=== PATIENT | female | born 1955 | race Caucasian/White ===

== ENCOUNTER 2019-10-13 12:47 | Observation (INO) | payer MEDICARE, OTHER ==
[~2019-10-13] VITALS: Ht 160 cm; Wt 63.2 kg
[~2019-10-13 12:47] MED LIST: ANTIFUNGAL CREA14 GM TP; ASPIRIN EC325 MG PO; BLOOD GLUCOSE1 EAC5 MC; CARVEDILOL6.25 MG PO; CEPHALEXIN500 MG PO; CYMBALTA20 MG PO; FUROSEMIDE80 MG PO; GLIPIZIDE5 MG PO; LANTUS100 UNITS/ SUB-Q; LASIX20 MG PO; LIPITOR40 MG PO; NOVOLOG100 UNITS/ IV; ZESTRIL5 MG PO
--- OUTSIDE RECORDS SUMMARY | 2019-10-13 12:50 | XMS ---
PreManage Notification: WASHINGTON BAUGH Security Glass Decorator Events No recent Security Events currently on file CRITERIA MET - History of Sepsis Dx CARE PROVIDERS Lynda Paz Provisioning Specialist/Pet Resort Concierge 05/31/2018-Current PHONE: [phone] Lynda Paz Primary Care 05/31/2018-Current PHONE: [phone] Srini Cage MD Treatment Current PHONE: Unknown Family [facility] Primary [facility] Current Associates PHONE: [phone] Letitia has no Care Guidelines for this patient. Angelica VISIT COUNT (12 MO.) 1 [facility] Gloria TOTAL 1 NOTE: Visits indicate total known visits. ED/UCC VISIT TRACKING (12 MO.) 10/13/2019 12:48 [facility] [place] TYPE: Emergency COMPLAINT: - ALTERED LOC INPATIENT VISIT TRACKING (12 MO.) No inpatient visits to display in this time frame [id number]
[2019-10-13] MEDS ORDERED: MECLIZINE HCL25 MG PO (13:09)
[2019-10-13] MEDS ORDERED: LOSARTAN POTASS25 MG PO (13:09)
[2019-10-13] MEDS ORDERED: CITALOPRAM HBR40 MG PO (13:09)
[2019-10-13] MEDS ORDERED: FAMOTIDINE40 MG PO (13:10)
--- NOTE | 2019-10-13 20:42 | NUR ---
PT ARRIVED TO THE FLOOR AT 2009. SHE WAS UNABLE TO AMBULATE TO THE BED AND WAS MOVED OVER ON [facility] 3PA. SHE HAS A MOROCHO IN PLACE AND IS ON 3LNC. RR IS EVEN AND NONLABORED. SHE IS HERE ALONE. COMPLETED PT'S ADMISSION HX BEST POSSIBLE. ORIENTED PT TO THE ROOM AND CALL BUTTON. SHE DENIES NEEDS AT THIS TIME. CALL LIGHT IS CLOSE.
--- NOTE | 2019-10-13 21:56 | NUR ---
PATIENT RESTING IN BED, BLOOD SUGAR WAS 115 SO NO S/S INSULIN, PATIENT CAN BE SEEN FROM THE DESK, CALL LIGHT IN REACH. PATIENT HAS A HARD TIME SPEAKING, SEEING, AND MOVING WHICH IS BASELINE FOR HER.
--- NOTE | 2019-10-13 22:58 | NUR ---
DONE PERFORMING PATIENT'S ASSESSMENT. PATIENT ABLE TO GET DOWN LARGE K+ PILLS WITH PUDDING AND DRINKING WATER ON HER OWN. PATIENT SAYS SHE IS STILL TO WEAK TO USE HER WALKER ON HER OWN AND USUALLY USES A WHEELCHAIR WITH HER HUSBANDS HELP OR A RADIO STATION OPERATOR MEDICAL SOCIAL CONSULTANT TO GET AROUND. UNABLE TO OPEN HER RIGHT EYE AND THAT PUPILS LOOKS FIXED AT 6MM WHEN OPEN, BUT SHE SAYS SHE CAN SEE THROUGH IT. NO HAVING ANY PAIN. MOROCHO DRAINING AND PLACED WAS PLACED IN ER.IV FLUSHES FINE. PATIENT IN SEMI-FOWLERS POSITION AND GOING TO TRY AND GET SOME REST CAN MOVE AND FEEL ALL EXTREMITES. ON TELE IN SR. PUSH BUTTON CALL LIGHT GIVEN FOR EASE OF USE AND PATIENT CAN BE SEEN FROM THE NURSES DESK. WATER IS ALSO IN REACH, BUT DID COUGH COUPLE TIMES WHEN SHE DRANK. BLOOD SUGAR WAS 115 SO NO INSULIN GIVEN. LIGHTS TURNED DOWN AT PATIENT REQUEST.
--- NOTE | 2019-10-14 00:59 | NUR ---
PATIENT TOOK HER SECOND DOSE OF K+ TABLETS W/O DIFFICULTY IN PUDDING AND HAS BEEN DOING WELL AND RESTING WITH EYES CLOSED UNTIL I WOKE HER TO GIVE HER MEDS. PATIENT HAS NO OTHER NEEDS AT THIS TIME. CALL LIGHT IN HAND AND PATIENT RESTING QUIETLY.
--- NOTE | 2019-10-14 03:00 | NUR ---
PATIENT CONTINUES TO REST QUIETLY IN SEMI-FOWLERS POSITION, MOROCHO DRAINING, IV PATENT, NO C/O PAIN, REMAINS ON 2L/NC WWITH SATS IN THE 90'S. USUALLY HAS EYES CLOSED. CALL LIGHT IN HAND.
--- NOTE | 2019-10-14 05:28 | NUR ---
PATIENT RESTED WELL MOST OF THE NIGHT ON 2L/NC AND CPOX IN THE 90'S%. TELE RYTHEM HAS BEEN SINUS MAINLY IN THE 60'S AND 70'S. CALL LIGHT STILL IN HAND AND EYES CLOSED, RESPIRATIONS REGULAR AND EVEN.
--- NOTE | 2019-10-14 07:00 | NUR ---
Bedside report received, orders acknowledged.
--- NOTE | 2019-10-14 08:19 | NUR ---
Echo in room to perform imaging. AM medications given with pudding. Patient wiped down and warm blankets provided.
--- NOTE | 2019-10-14 10:06 | NUR ---
DC CATHETER WITH PETEY ROBB. PT TOLERATED. DENIES FURTHER NEEDS. ADJUSTED TO COMFORTABLE POSITION. CALL-LIGHT WITHIN REACH.
--- NOTE | 2019-10-14 10:26 | NUR ---
Patient readjusted in bed to floating both hips with pillows. Sister at bedside visiting. Denies needs at this time, call light within reach.
--- NOTE | 2019-10-14 11:30 | NUR ---
Patient transfered to chair with gait belt, FWW, and 2PA. Unsteady on feet, stand and pivot to the chair. Warm blankets provided, lunch delivered. Family in room at chairside. Denies further needs at this time, call light within reach.
--- NOTE | 2019-10-14 11:40 | NUR ---
SPOKE WITH PATIENT AND SISTER IN ROOM. PATIENT UP IN THE CHAIR, ON ROOM AIR. PATIENT HAS SOME TROUBLE WITH SPEAKING FROM PREVIOUS STROKE, BUT IS ORIENTED AND APPROPRIATE IN ANSWERS. SHE INTENDS TO GO HOME WITH ROBE, HER LIFE PARTNER AT DISCHARGE. SHE HAS ONE SMALL STEP INTO HOME, NO STAIRS INSIDE. HAS A WALKER AND WHEELCHAIR. FAMILY ARE CAREGIVERS. THEY KNOW OF NOTHING NEEDED AT THIS TIME TO GO HOME SAFELY. WILL FOLLOW NEEDED.
[2019-10-14] MEDS ORDERED: COREG6.25 MG PO (14:06)
[2019-10-14] MEDS ORDERED: TURMERIC500 M2 PO (14:07)
[2019-10-14] MEDS ORDERED: ALLEGRA-D 24 H1 EACH PO (14:07)
--- NOTE | 2019-10-14 14:08 | NUR ---
MED REC COMPLETED.
--- NOTE | 2019-10-14 14:15 | NUR ---
Patient up to commode with FWW, gait belt, and 2PA. Voided 75 mls. Returned to bed. Denies needs at this time, call light within reach.
[2019-10-14] MEDS ORDERED: POTASSIUM CHLO10 MEQ PO (14:16)
[2019-10-14] MEDS ORDERED: TORSEMIDE10 MG PO (14:16)
--- NOTE | 2019-10-14 15:39 | NUR ---
Discharge instructions given. Patient and family verbalized understanding of follow up appointment. Vital signs taken, IV D/C'd. All personal belongings collected. Patient leaves unit via wheelchair with nursing staff.
--- NOTE | 2019-10-14 17:09 | EKG ---
[facility] [address] [facility] [place] [address] Signed Sinus rhythm with 1st degree AV block ST \T\ T wave abnormality, consider inferior ischemia ST \T\ T wave abnormality, consider anterolateral ischemia Prolonged QT Abnormal ECG When compared with ECG of 15-AUG-2016 11:06, [place] interval has increased Left anterior fascicular block is no longer present ST now depressed in Anterior leads T wave inversion now evident in Anterior leads Confirmed by IVÁN BENJAMIN MD ([id number]) on 10/14/2019 5:08:55 PM Electronically Signed By: IVÁN BENJAMIN MD 10/14/19 1709 PATIENT NAME: WASHINGTON BAUGH Electrocardiogram DATE OF : 59 PHYSICIAN: IVÁN BENJAMIN MD REPORT #: [id number] REPORT IS CONFIDENTIAL AND NOT TO BE RELEASED WITHOUT AUTHORIZATION
--- NOTE | 2019-10-14 17:09 | EKG ---
[facility] [address] [facility] [place] [address] Signed Sinus rhythm with 1st degree AV block ST \T\ T wave abnormality, consider inferior ischemia ST \T\ T wave abnormality, consider anterolateral ischemia Abnormal ECG When compared with ECG of 13-OCT-2019 14:16, (Unconfirmed) No significant change was found Confirmed by IVÁN BENJAMIN MD ([id number]) on 10/14/2019 5:09:07 PM Electronically Signed By: IVÁN BENJAMIN MD 10/14/19 1709 PATIENT NAME: WASHINGTON BAUGH Electrocardiogram DATE OF : 59 PHYSICIAN: IVÁN BENJAMIN MD REPORT #: [id number] REPORT IS CONFIDENTIAL AND NOT TO BE RELEASED WITHOUT AUTHORIZATION
== END 2019-10-14 15:25 | disposition home or self-care (01) ==
LOC: ED 12:47 → MS 12:49
PROVIDERS: ADMIT Internal Medicine
DX: R55 Syncope and collapse (principal); I50.33 Acute on chronic diastolic (congestive) heart failure; E11.9 Type 2 diabetes mellitus without complications; E78.5 Hyperlipidemia, unspecified; K21.9 Gastro-esophageal reflux disease without esophagitis; J96.01 Acute respiratory failure with hypoxia; I69.991 Dysphagia following unspecified cerebrovascular disease; R13.12 Dysphagia, oropharyngeal phase; I69.91 Cognitive deficits following unspecified cerebrovascular disease; Z87.891 Personal history of nicotine dependence; Z88.0 Allergy status to penicillin; Z88.8 Allergy status to other drugs, medicaments and biological substances; Z79.82 Long term (current) use of aspirin; Z79.4 Long term (current) use of insulin; Z79.899 Other long term (current) drug therapy
CPT/HCPCS: 51702; 71046; 80053; 83880; 84484; 85025; 85379; 92610; 93005; 93010; 93306; 94640; 94762; 96372; 96375; 99285-25; G0378; J1170; J1650; J1940; J7030

== ENCOUNTER 2020-02-24 15:18 | Emergency (ER) | payer MEDICARE, OTHER ==
[~2020-02-24] VITALS: Ht 160 cm; Wt 63.0 kg
--- OUTSIDE RECORDS SUMMARY | ~2020-02-24 | XMS | Encounter Summary ---
Demographics + + + | Address | [address] | | | [place] [address] | + + + | Home Phone | | + + + | Preferred Language | Unknown | + + + | Marital Status | Unknown | + + + | Catholic Affiliation | Unknown | + + + | Race | Unknown | + + + | Ethnic Group | Unknown | + + + Author + + + | Author | [facility] | | | and [place] | + + + | Organization | [facility] | | | and [place] | + + + | Address | Unknown | + + + | Phone | Unavailable | + + + Support + + +---------+ + | Name | Relationship | Address | Phone | + + +---------+ + | Edvin Sophia | ECON | Unknown | | + + +---------+ + Care Team Providers + +------+ + | Care Immigration Paralegal Name | Role | Phone | + +------+ + | Santhosh Daniels MD | PCP | | + +------+ + Encounter Details +--------+ + + + + | Date | Type | Department | Care Team | Description | +--------+ + + + + | 11/28/ | Orders Only | [facility] | Conversion | | | 2016 | | CONVERSION DEP [address] | Transaction, | | | | | MAG[address]AL[address] CARRERO | Provider Unknown | | | | | [place] | [phone] | | | | | [phone] | | | | | | [phone] | | | +--------+ + + + + Social History + +-------+ +--------+------+ | Tobacco Use | Types | Packs/Day | Years | Date | | | | | Used | | + +-------+ +--------+------+ | Never Assessed | | | | | + +-------+ +--------+------+ + + + | Sex Assigned at | Date Recorded | | | | + + + | Not on file | | + + + documented as of this encounter Plan of Treatment Not on filedocumented as of this encounter Visit Diagnoses Not on filedocumented in this encounter"
--- OUTSIDE RECORDS SUMMARY | ~2020-02-24 | XMS | Clinical Summary ---
Demographics + + + | Address | [address] | | | [place] [address] | + + + | Home Phone | | + + + | Preferred Language | Unknown | + + + | Marital Status | Unmarried Domestic Partner | + + + | Baptist Affiliation | Unknown | + + + | Race | Unknown | + + + | Ethnic Group | Other Race | + + + Author + + + | Author | [facility] | + + + | Organization | [facility] | + + + | Address | Unknown | + + + | Phone | Unavailable | + + + Support + + + + + | Name | Relationship | Address | Phone | + + + + + | Edvin Cortes | ECON | [address] | | | | | [place] | | | | | [address] | | + + + + + Care Team Providers + +------+ + | Care Concrete Layer Name | Role | Phone | + +------+ + | Santhosh Daniels MD | PCP | | + +------+ + Source Comments [facility] is fully live on both [facility] and [facility] Allergies Not on File Medications Not on file Active Problems Not on file Social History + +-------+ +--------+------+ | Tobacco [...] on file | | + + + + + + + | Job Start Date | Occupation | Industry | + + + + | Not on file | Not on file | Not on file | + + + + + + + + | Travel History | Travel Start | Travel End | + + + + + + | No recent travel history available. | + + Last Filed Vital Signs Not on file Plan of Treatment + + + + + | Health Maintenance | Due Date | Last Done | Comments | + + + + + | Influenza (Flu) | | | | | vaccination (#1) | 9 | | | + + + + + | Pneumococcal | Aged Out | | No longer eligible | | vaccination | | | based on patient's | | | | | age to complete this | | | | | topic | + + + + + Results Not on filefrom Last 3 Months Insurance + +--------+ +--------+-------+---------+--------+ | Payer | Benefi | Subscriber | Effect | Phone | Address | Type | | | t Plan | ID | gisela | | | | | | / | | Dates | | | | | | Group | | | | | | + +--------+ +--------+-------+---------+--------+ | DOG BOARDER MEDICAID | DOG BOARDER | xxxxxxxx | | | | Medica | | | [place] | | 017-Pr | | | id | | | [place] | | esent | | | | + +--------+ +--------+-------+---------+--------+ + +--------+ +--------+ + + | Guarantor Name | Accoun | Relation to | Date | Phone | Billing Address | | | t Type | Patient | of | | | | | | | | | | + +--------+ +--------+ + + | Jackeline Bagley | Person | Self [birth year] | [address] | | | al/[place] | | 1955 | [phone] | [place] [address] | | | sana | | | 5 (Home) | | + +--------+ +--------+ + +"
--- OUTSIDE RECORDS SUMMARY | ~2020-02-24 | XMS | Encounter Summary ---
Demographics + + + | Address | [address] | | | [place] [address] | + + + | Home Phone | | + + + | Preferred Language | Unknown | + + + | Marital Status | Unknown | + + + | Orthodox Affiliation | Unknown | + + + [...] Team Providers + +------+ + | Care Head Baggage Porter Name | Role | Phone | + +------+ + | Santhosh Daniels MD | PCP | | + +------+ + Encounter Details +--------+ + + + + | Date | Type | Department | Care Team | Description | +--------+ + + + + | 02/04/ | Orders Only | [facility] | Conversion | | | 2016 | | CONVERSION DEP 888 | Transaction, | | | | | MAGDALENA CARRERO | Provider Unknown | | | | | [place] | [phone] | | | | | [address] | | | | | | [phone] | | | +--------+ + + + [...]
--- OUTSIDE RECORDS SUMMARY | ~2020-02-24 | XMS | Clinical Summary ---
Demographics + + + | Address | [address] | | | [place] [address] | + + + | Home Phone | | + + + | Preferred Language | Unknown | + + + | Marital Status | Unknown | + + + | Hindu Affiliation | Unknown | + + + | Race | Unknown | + + + | Ethnic Group | Unknown | + + + Author + + + | Author | [facility] | | | and [place] | + + + | Organization | [facility] | | | and [...] Team Providers + +------+ + | Care Relations Coordinator Name | Role | Phone | + +------+ + | Santhosh Daniels MD | PCP | | + +------+ + Allergies + + + + + + | Active Allergy | Reactions | Severity | Noted | Comments | | | | | Date | | + + + + + + | Penicillins | Swelling | Medium | 11/28/19 | | | | | | 16 | | + + + + + + Medications + + + +---------+------+------+-------+ | Medication | Sig | Dispensed | Refills | Star | End | Statu | | | | | | t | Date | s | | | | | | Date | | | + + + +---------+------+------+-------+ | TURMERIC PO | Take by mouth. | | 0 | 06/0 | | Activ | | | | | | 6/20 | | e | | | | | | 19 | | | + + + +---------+------+------+-------+ | aspirin 325 mg EC | Take 325 mg by mouth | | 0 | 03/3 | | Activ | | tablet | daily with | | | 1/20 | | e | | | breakfast. | | | 16 | | | + + + +---------+------+------+-------+ | amLODIPine | Take 5 mg by mouth | | 0 | 03/3 | | Activ | | (NORVASC) 5 mg | daily. | | | 20 | | e | | tablet | | | | 16 | | | + + + +---------+------+------+-------+ | carvedilol (COREG) | Take 6.25 mg by | | 0 | 03/3 | | Activ | | 6.25 mg tablet | mouth 2 (two) times | | | 20 | | e | | | daily with meals. | | | 16 | | | + + + +---------+------+------+-------+ | atorvaSTATin | Take 40 mg by mouth | | 0 | 03/3 | | Activ | | (LIPITOR) 40 mg | nightly. | | | 20 | | e | | tablet | | | | 16 | | | + + + +---------+------+------+-------+ | fexofenadine | Take 60 mg by mouth | | 0 | 06/0 | | Activ | | (HUDSON) 60 mg | 2 (two) times daily. | | | 03/19 | | e | | tablet | | | | 16 | | | + + + +---------+------+------+-------+ | meclizine | Take 25 mg by mouth | | 0 | 11/2 | | Activ | | (ANTIVERT) 25 mg | 2 (two) times daily. | | | 0/20 | | e | | tablet | | | | 17 | | | + + + +---------+------+------+-------+ | insulin glargine | Inject into the | | 0 | 11/2 | | Activ | | (LANTUS SOLOSTAR) | skin every morning. | | | 0/20 | | e | | 100 units/mL | | | | 17 | | | | injection (pen) | | | | | | | + + + +---------+------+------+-------+ | losartan (COZAAR) | Take 25 mg by mouth | | 0 | 06/0 | | Activ | | 25 mg tablet | daily. | | | 6/20 | | e | | | | | | 19 | | | + + + +---------+------+------+-------+ | citalopram | Take 40 mg by mouth | | 0 | 06/0 | | Activ | | (CELEXA) 40 mg | daily. | | | 6/20 | | e | | tablet | | | | 19 | | | + + + +---------+------+------+-------+ | raNITIdine | Take 150 mg by mouth | | 0 | 06/0 | | Activ | | (ZANTAC) 150 mg | 2 (two) times | | | 6/20 | | e | | tablet | daily. | | | 19 | | | + + + +---------+------+------+-------+ | cholecalciferol | Take 1,000 Units by | | 0 | 06/0 | | Activ | | (CHOLECALCIFEROL) | mouth daily. 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 H&H has been stable over the past 72 | | hours. Main issue has been CT on 08/31 which showed evolving CVA | | findings. Patient is now back on daily regular strength aspirin. | | --> Switched to twice daily IV PPI --> Telemetry --> December | | resume enteral feeding I will sign off. Please call should | | patient have evidence for recurrent gastrointestinal bleeding. | + + + + + | Cardiomyopathy | 08/14/2015 | + + + + + | Overview: Last Assessment & Plan: The pattern of LV | | dysfunction is global. Etiology is unknown. EF of 15% | | currently. No data on previous EF determinations. Differential | | diagnosis includes long-standing hypertensive cardiomyopathy or | | idiopathic cardiomyopathy. An ischemic evaluation has not been | | performed. Plan: Better controlled blood pressure Start | | low-dose diuretic Consider ischemic evaluation once patient | | recovers No change | + + + + + | Takotsubo cardiomyopathy | 08/14/2015 | + + + | CHF (congestive heart failure) | | + + + | DM (diabetes mellitus screen) | | + + + | HTN (hypertension) | | + + + | Tobacco use disorder | | + + + | Panniculitis | | + + + | Obesity | | + + + | Hypocalcemia | | + + + | LFTs abnormal | | + + + Immunizations + + + + | Name | Administration Dates | Next Due | + + + + | RYAN BLANCA 18-64 | 03/31/2015 | | | YRS,QUAD INTRADERMAL | | | + + + + Family History + + +------+ + | Medical History | Relation | Name | Comments | + + +------+ + | Heart attack | Father | | | + + +------+ + | Other (see comment) | Father | | Heart Problems | + + +------+ + | Parkinsonism | Father | | | + + +------+ + | Stroke | Father | | | + + +------+ + + +------+ + + | Relation | Name | Status | Comments | + +------+ + + | Father | | Alive | | + +------+ + + | Father | | | | + +------+ + + | Mother | | | | + +------+ + + Social History + +-------+ +--------+------+ | Tobacco Use | Types | Packs/Day | Years | Date | | | | | Used | | + +-------+ +--------+------+ | Former Smoker | | | | | + +-------+ +--------+------+ + + + | Sex Assigned at | Date Recorded | | | | + + + | Not on file | | + + + Last Filed Vital Signs + + + + + | Vital Sign | Reading | Time Taken | Comments | + + + + + | Blood Pressure | 80/58 | 02/03/2019 1:28 PM | | | | | PDT | | + + + + + | Pulse | 71 | 02/03/2019 1:28 PM | | | | | PDT | | + + + + + | Temperature | - | - | | + + + + + | Respiratory Rate | 20 | 02/05/2016 2:26 PM | | | | | PDT | | + + + + + | Oxygen Saturation | - | - | | + + + + + | Inhaled Oxygen | - | - | | | Concentration | | | | + + + + + | Weight | 63.2 kg (139 lb 4.8 | 02/03/2019 1:28 PM | | | | oz) | PDT | | + + + + + | Height | 161.3 cm (5' 3.5") | 02/03/2019 1:28 PM | | | | | PDT | | + + + + + | Body Mass Index | 24.29 | 02/03/2019 1:28 PM | | | | | PDT | | + + + + + Plan of Treatment + + + + + | Health Maintenance | Due Date | Last | Comments | | | | Done | | + + + + + | Hepatitis C | | | | | Screening | 7 | | | + + + + + | Vaccine: | | | | | Pneumococcal 19-64 | 3 | | | | (1 of 1 - PPSV23) | | | | + + + + + | Diabetic Eye Exam | | | | | | 5 | | | + + + + + | Diabetic Foot Exam | | | | | | 5 | | | + + + + + | Hemoglobin A1c | | | | | Screening | 5 | | | + + + + + | Vaccine: | | | | | Dtap/Tdap/Td (1 - | 6 | | | | Tdap) | | | | + + + + + | Cervical Cancer | | | | | Screening (Pap) | 7 | | | + + + + + | Colorectal Cancer | | | | | Screening | 7 | | | | (Colonoscopy) | | | | + + + + + | Vaccine: Zoster (1 | | | | | of 2) | 7 | | | + + + + + | Breast Cancer | | | | | Screening | 2 | | | + + + + + | Adult Annual | | | | | Wellness Visit | 9 | | | + + + + + | Vaccine: Influenza | | 03/31/20 | | | (Season Ended) | 0 | 15 | | + + + + + Results Not on filefrom Last 3 Months Insurance + +--------+ +--------+ +---------+--------+ | Payer | Benefi | Subscriber | Effect | Phone | Address | Type | | | t Plan | ID | gisela | | | | | | / | | Dates | | | | | | Group | | | | | | + +--------+ +--------+ +---------+--------+ | MEDICARE | MEDICA | [id number] | 01/30/20 | [phone] | | Medica | | | RE | | 18-Pre | 5 | | re | | | PART A | | sent | | | | | | AND B | | | | | | + +--------+ +--------+ +---------+--------+ | [employer] | MODA | [id number] | | [phone] | | Medica | | MEDICAID HMO | HEALTH | | 019-Pr | 1 | | id | | | MDCD | | esent | | | | | | [place]MO [place] | | | | | | + +--------+ +--------+ +---------+--------+ + +--------+ +--------+ + + | Guarantor Name | Accoun | Relation to | Date | Phone | Billing Address | | | t Type | Patient | of | | | | | | | | | | + +--------+ +--------+ + + | Andrew Bagleyna Carlos | Person | Self [birth year] | [address] | | | al/Fam | | 1955 | [phone] | [place] | | | sana | | | [address] (Home) | [phone] | + +--------+ +--------+ + + Advance Directives + + + + + | Type | Date Recorded | Patient | Explanation | | | | Crusher | | + + + + + | Power of | | | | | Comber Setter | | | | + + + + + | Advance | | | | | Directive | | | | + + + + +
--- OUTSIDE RECORDS SUMMARY | ~2020-02-24 | XMS | Encounter Summary ---
Demographics + + + | Address | [address] | | | [place] [address] | + + + | Home Phone | | + + + | Preferred Language | Unknown | + + + | Marital Status | Unmarried Domestic Partner | + + + | Spiritism Affiliation | Unknown | + + + | Race | Unknown | + + + | Ethnic Group | Other Race | + + + Author + + + | Author | [facility] | + + + | Organization | [facility] | + + + | Address | Unknown | + + + | Phone | Unavailable | + + + Support + + + + + | Name | Relationship | Address | Phone | + + + + + | Edvin Cortes | ECON | [address] | | | | | [place], [place] | | | | | [address] | | + + + + + Care Team Providers + +------+ + | Care Ems Instructor Name | Role | Phone | + +------+ + | Santhosh Daniels MD | PCP | | + +------+ + Encounter Details +--------+ + + + + | Date | Type | Department | Care Team | Description | +--------+ + + + + | 02/16/ | Document-Sc | UNKNOWN DEPARTMENT | Unknown . | | | 2018 | anned | [address] | | | | | | [address] | | | | | | [place], [place] | | | | | | [address] | | | +--------+ + + + [...] recent travel history available. | + + documented as of this encounter Plan of Treatment Not on filedocumented as of this encounter Visit Diagnoses Not on filedocumented in this encounter"
--- OUTSIDE RECORDS SUMMARY | ~2020-02-24 | XMS | Encounter Summary ---
Demographics + + + | Address | [address] | | | [place] [address] | + + + | Home Phone | | + + + | Preferred Language | Unknown | + + + | Marital Status | Unmarried Domestic Partner | + + + | Congregational Affiliation | Unknown | + + + | Race | Unknown | + + + | Ethnic Group | Other Race | + + + Author + + + | Author | [facility] | + + + | Organization | [facility] | + + + | Address | Unknown | + + + | Phone | Unavailable | + + + Support + + + + + | Name | Relationship | Address | Phone | + + + + + | Edvin Cortes | ECON | [address] | | | | | [place], [place] | | | | | [address] | | + + + + + Care Team Providers + +------+ + | Care Director Of Partner Marketing Name | Role | Phone | + [...] [address] | | | | | | [place], [place] | | | | | | [address] | | | +--------+ + + + [...]
--- OUTSIDE RECORDS SUMMARY | ~2020-02-24 | XMS | Encounter Summary ---
Demographics + + + | Address | [address] | | | [place] [address] | + + + | Home Phone | | + + + | Preferred Language | Unknown | + + + | Marital Status | Unknown | + + + | Adventist Affiliation | Unknown | + + + | Race | Unknown | + + + | Ethnic Group | Unknown | + + + Author + + + | Author | [facility] | | | and [place] | + + + | Organization | [facility] | | | [...] Team Providers + +------+ + | Care Numerical Tool Programmer Name | Role | Phone | + +------+ + | Santhosh Daniels MD | PCP | | + +------+ + Encounter Details +--------+ + + + + | Date | Type | Department | Care Team | Description | +--------+ + + + + | 02/03/ | Orders Only | [facility] | Conversion | | | 2019 | | CONVERSION DEP [address] | Transaction, | | | | | MAGDALENA CARRERO | Provider Unknown | | | | | [address] | [phone] | | | | | [address] | | | | | | [phone] | | | +--------+ + + + [...]
--- OUTSIDE RECORDS SUMMARY | ~2020-02-24 | XMS | Encounter Summary ---
Demographics + + + | Address | [address] | | | [place] [address] | + + + | Home Phone | | + + + | Preferred Language | Unknown | + + + | Marital Status | Unmarried Domestic Partner | + + + | Gnosticist Affiliation | Unknown | + + + | Race | Unknown | + + + | Ethnic Group | Other Race | + + + Author + + + | Author | [facility] | + + + | Organization | [facility] | + + + | Address | Unknown | + + + | Phone | Unavailable | + + + Support + + + + + | Name | Relationship | Address | Phone | + + + + + | Edvin Cortes | ECON | [address] | | | | | [place], [place] | | | | | [address] | | + + + + + Care Team Providers + +------+ + | Care Graphic Coordinator Name | Role | Phone | + +------+ + | Santhosh Daniels MD | PCP | | + +------+ + Encounter Details +--------+ + + + + | Date | Type | Department | Care Team | Description | +--------+ + + + + | 02/16/ | Document-Sc | Health Information | Unknown . | | | 2018 | anned | Services [id number] | | | | | [address] | | | | | | Mailcode: OP17A | | | | | | [facility] | | | | | | [place], [place] | | | | | | [address] | | | | | | [phone] | | | +--------+ + + + [...]
--- OUTSIDE RECORDS SUMMARY | ~2020-02-24 | XMS | Encounter Summary ---
Demographics + + + | Address | [address] | | | [place] [address] | + + + | Home Phone | | + + + | Preferred Language | Unknown | + + + | Marital Status | Unmarried Domestic Partner | + + + | Mormon Affiliation | Unknown | + + + | Race | Unknown | + + + | Ethnic Group | Other Race | + + + Author + + + | Author | [facility] | + + + | Organization | [facility] | + + + | Address | Unknown | + + + | Phone | Unavailable | + + + Support + + + + + | Name | Relationship | Address | Phone | + + + + + | Edvin Cortes | ECON | [address] | | | | | [place], [place] | | | | | [address] | | + + + + + Care Team Providers + +------+ + | Care Commercial Leasing Agent Name | Role | Phone | + +------+ + | Santhosh Daniels MD | PCP | | + +------+ + Encounter Details +--------+ + + + + | Date | Type | Department | Care Team | Description | +--------+ + + + + | 10/ | Results/Int | Neurology | Urszula Foreman MD | | | 2018 | erpretation | Telemedicine [address] | [address] | | | | | [address] [facility] | [place], [place] | | | | | Rd [place], [place] | [address] | | | | | [address] | [phone] | | | | | | | | +--------+ + + + [...] Not on filedocumented as of this encounter Procedures + +--------+ + + + | Procedure Name | Priori | Date/Time | Associated Diagnosis | Comments | | | ty | | | | + +--------+ + + + | EEG ROUTINE | Routin | 01/07/2018 | | Results for this | | | e | | | procedure are in the | | | | | | results section. | + +--------+ + + + documented in this encounter Results EEG ROUTINE (01/07/2018) + + + | Narrative | Performed At | + + + | Patient Name: Jackeline Bagley Date of : 1955 | | | Date of Test: 01/07/2018 Place of | | | Service: [facility] Telemedicine ([id number]) [facility] Department: [facility] | | | TELEMEDICINE - [id number] [facility] ROUTINE EEG | | | History: 63 year old woman with reported history of stroke and | | | "increased absence-like events." Medications: No current | | | outpatient prescriptions on file. Notes indicate: ASA, Lantus, | | | meclizine, flonase, amlodipine, lisinopril, atorvastatin, cymbalta, | | | omeprazole, carvedilol. Interpretation: In the maximally alert | | | state, there is a reactive 10 Hz posterior dominant rhythm of moderate | | | amplitude, with lower amplitude faster frequencies present in the | | | anterior head regions. The patient entered into the drowsy state, | | | but no segment of stage I or stage II sleep was recorded. From onset | | | of recording, there is essentially continuous electrode artifact at | | | C4, T4, and T2, limiting interpretation of right hemisphere activity. | | | Over the course of the recording, electrode artifact is noted | | | intermittently at F3 and to a lesser exent, T3. No clear focal slowing | | | or epileptiform discharges were present, but assessment of right | | | hemisphere activity was severly limited. Hyperventilation was | | | performed for 3 minutes with no clear abnormal responses. Photic | | | stimulation produced no photoparoxysmal discharges or other abnormal | | | responses. EKG showed normal sinus rhythm with some apparent PVCs | | | and movement and 60Hz artifact. Impression: This awake and | | | drowsy EEG contains prominent right hemisphere electrode artifact that | | | limits assessment for right hemisphere slowing or epileptiform | | | activity. In the context of these limitations, the EEG background | | | appears grossly within the range of normal in wakefulness and | | | drowsiness, and no definite epileptiform discharges or electrographic | | | seizures were recorded. None of the patient's "absence-like" events | | | were reported during the EEG recording. Electronically signed on | | | 01/07/2018 at 2:50 PM URSZULA FOREMAN MD. Suggested Modifier: GT | | | - Telemedicine Suggested CPT: 50178 - EEG Routine Awake Only | | | Suggested Dx: R40.4 Transient alteration of awareness | | + + + documented in this encounter Visit Diagnoses Not on filedocumented in this encounter
--- OUTSIDE RECORDS SUMMARY | ~2020-02-24 | XMS | Encounter Summary ---
Demographics + + + | Address | [address] | | | [place] [address] | + + + | Home Phone | | + + + | Preferred Language | Unknown | + + + | Marital Status | Unmarried Domestic Partner | + + + | Holiness Affiliation | Unknown | + + + | Race | Unknown | + + + | Ethnic Group | Other Race | + + + Author + + + | Author | [facility] | + + + | Organization | [facility] | + + + | Address | Unknown | + + + | Phone | Unavailable | + + + Support + + + + + | Name | Relationship | Address | Phone | + + + + + | Edvin Cortes | ECON | [address] | | | | | [place], [place] | | | | | [address] | | + + + + + Care Team Providers + +------+ + | Care Stock Speculator Name | Role | Phone | + [...] [address] | | | | | [address] [facility] | [place], [place] | | | | | Rd [place], [place] | [address] | | | | | [address] | [phone] | | | | | | | [...] | | | Service: [facility] EEG Telemedicine ([id number]) [facility] Department: [facility] EEG | | | TELEMEDICINE - [id number] [facility] ROUTINE EEG | | | History: 63 [...] | | | - Telemedicine Suggested CPT: 37705 - EEG Routine Awake Only | | | Suggested Dx: R40.4 Transient alteration of awareness | | + + + documented in this encounter Visit Diagnoses Not on filedocumented in this encounter
--- OUTSIDE RECORDS SUMMARY | ~2020-02-24 | XMS | Encounter Summary ---
Demographics + + + | Address | [address] | | | [place] [address] | + + + | Home Phone | | + + + | Preferred Language | Unknown | + + + | Marital Status | Unknown | + + + | Gnosticism Affiliation | Unknown | + + + | Race | Unknown | + + + | Ethnic Group | Unknown | + + + Author + + + | Author | [facility] | | | and [place] | + + + | Organization | [facility] | | | and [...] Team Providers + +------+ + | Care Monotypist Name | Role | Phone | + +------+ + | Santhosh Daniels MD | PCP | | + +------+ + Reason for Visit +--------+--------+ + | Reason | Onset | Comments | | | Date | | +--------+--------+ + | Other | 05/10/ | Talked to patient's caregiver about appointment for | | | 2019 | 05-12-19. | +--------+--------+ + Encounter Details +--------+ + + + + | Date | Type | Department | Care Team | Description | +--------+ + + + + | 05/10/ | Telephone | [facility] | Karla Canas | Other (Talked to | | 2018 | | CARDIOLOGY EDGAR Harper, Hair Dresser | patient's caregiver | | | | [address] | | about appointment | | | | [place] | | for 05-12-19. ) | | | | [address] | | | | | | [phone] | | | +--------+ + + + [...] + + documented as of this encounter Miscellaneous Notes Telephone Encounter - Karla Canas, Hair Dresser - 05/10/2019 10:10 AM Mak nye did not do ECHO. Patient caregiver said they would reschedule ECHO at [facility], and call back to reschedule FU. JLeroyW:SOLUTION LEAD-AAMA. c umented in this encounter Plan of Treatment Not on filedocumented as of this encounter Visit Diagnoses Not on filedocumented in this encounter"
--- OUTSIDE RECORDS SUMMARY | ~2020-02-24 | XMS | Encounter Summary ---
Demographics + + + | Address | [address] | | | [place] [address] | + + + | Home Phone | | + + + | Preferred Language | Unknown | + + + | Marital Status | Unmarried Domestic Partner | + + + | Hinduism Affiliation | Unknown | + + + | Race | Unknown | + + + | Ethnic Group | Other Race | + + + Author + + + | Author | [facility] | + + + | Organization | [facility] | + + + | Address | Unknown | + + + | Phone | Unavailable | + + + Support + + + + + | Name | Relationship | Address | Phone | + + + + + | Edvin Cortes | ECON | [address] | | | | | [place], [place] | | | | | [address] | | + + + + + Care Team Providers + +------+ + | Care Training Systems Officer Name | Role | Phone | + +------+ + | Santhosh Daniels MD | PCP | | + +------+ + Encounter Details +--------+ + + + + | Date | Type | Department | Care Team | Description | +--------+ + + + + | 02/16/ | Document-Sc | Health Information | Unknown . | | | 2018 | anned | Services [address] | | | | | | [address] | | | | | | Mailcode: OP17A | | | | | | [facility] | | | | | | [place], [place] | | | | | | [address] | | | | | | [phone] | | | +--------+ + + + [...]
--- OUTSIDE RECORDS SUMMARY | ~2020-02-24 | XMS | Clinical Summary ---
Demographics + + + | Address | [address] | | | [place] [address] | + + + | Home Phone | | + + + | Preferred Language | Unknown | + + + | Marital Status | Unmarried Domestic Partner | + + + | Restorationism Affiliation | Unknown | + + + [...] + | Edvin Cortes | ECON | [address] | | | | | [place] | | | | | [address] | | + + + + + Care Team Providers + +------+ + | Care Family Dinner Service Specialist Name | Role | Phone | + +------+ + | Santhosh Daniels MD | PCP | | + +------+ + Source Comments [facility] is fully live on both [facility] Ambulatory and [facility] InPatient.[facility] Allergies Not on File Medications Not on [...] | | | + +--------+ +--------+-------+---------+--------+ | [employer] MEDICAID | SHANK TAPPER | xxxxxxxx | | | | Medica [...] Person | Self | [birth year] | [address] | | | al/[place] | | 1955 | [phone] | [place] [address] | | | sana | | | 5 (Home) | | + +--------+ +--------+ + +"
--- OUTSIDE RECORDS SUMMARY | ~2020-02-24 | XMS | Encounter Summary ---
Demographics + + + | Address | [address] | | | [place] [address] | + + + | Home Phone | | + + + | Preferred Language | Unknown | + + + | Marital Status | Unknown | + + + | Catholic Affiliation | Unknown | + + + | Race | Unknown | + + + | Ethnic Group | Unknown | + + + Author + + + | Author | [facility] | | | and [place] | + + + | Organization | [facility] | | | [...] Team Providers + +------+ + | Care Tailer Off Name | Role | Phone | + +------+ + | Santhosh Daniels MD | PCP | | + +------+ + Encounter Details +--------+ + + + + | Date | Type | Department | Care Team | Description | +--------+ + + + + | 07/20/ | Orders Only | [facility] | Conversion | | | 2017 | | CONVERSION DEP [address] | Transaction, | | | | | MAGDALENA CARRERO | Provider Unknown | | | | | [address] | [phone] | | | | | [address] | | | | | | [phone] | | | +--------+ + + + [...]
[~2020-02-24 15:18] MED LIST changes: +ALLEGRA-D 24 H1 EACH PO; +CITALOPRAM HBR40 MG PO; +COREG6.25 MG PO; +FAMOTIDINE40 MG PO; +LOSARTAN POTASS25 MG PO; +MECLIZINE HCL25 MG PO; +POTASSIUM CHLO10 MEQ PO; +TORSEMIDE10 MG PO; +TURMERIC500 M2 PO
--- OUTSIDE RECORDS SUMMARY | 2020-02-24 15:20 | XMS ---
PreManage Notification: WASHINGTON BAUGH Security Manager Inventory Events No recent Security Events currently on file CRITERIA MET - [facility] - Has Care Guidelines - History of Sepsis Dx CARE PROVIDERS Lynda Paz Head Boys Golf Coach/Supervisor Matrix 05/31/2018-Current PHONE: [phone] ANJALI CISSE Internal Medicine 10/17/2019-Current PHONE: Unknown Letitia has no Care Guidelines for this patient. Care History Medical/Surgical 10/17/2019 [facility] Patient admitted.\T\nbsp; Follow up scheduled with Dr. Cisse on 10/18/2019 10/17/2019 [facility] - Patient is currently established with [facility]. If patient is seen in the ED during business hours. Please contact CHWs at [facility]. Care Recommendation: If this patient has had 5 or more Emergency Department visits in the last 12 months.\T\nbsp; Patient will require education on the scope and purpose of the ED as an acute care provider not a Primary Care Provider and should not be utilized for chronic conditions.\T\nbsp; These are guidelines and the provider should exercise clinical judgment when providing care. [place] VISIT COUNT (12 MO.) 2 LESTER Gloria TOTAL 2 NOTE: Visits indicate total known visits. ED/UCC VISIT TRACKING (12 MO.) 02/24/2020 15:18 [facility] [place] TYPE: Emergency COMPLAINT: - WEAKNESS 10/13/2019 12:48 [facility] [place] TYPE: Emergency COMPLAINT: - ALTERED LOC INPATIENT VISIT TRACKING (12 MO.) 10/13/2019 12:49 [facility] [place] TYPE: Observation COMPLAINT: - SYNCOPE/HYPOXIA DIAGNOSES: - Dysphagia, oropharyngeal phase - Gastro-esophageal reflux disease without esophagitis - Dysphagia following unspecified cerebrovascular disease - Hyperlipidemia, unspecified - Personal history of nicotine dependence - terminal gauger (current) use of aspirin - Other shelter (current) drug therapy - Allergy status to penicillin - Syncope and collapse - Type 2 diabetes mellitus without complications - Allergy status to other drugs, medicaments and biological sub - Psychomotor deficit following unspecified cerebrovascular dis - terminal gauger (current) use of insulin - Acute on chronic diastolic (congestive) heart failure - Acute respiratory failure with hypoxia [id number]
== END 2020-02-24 19:25 | disposition home or self-care (01) ==
LOC: ED 15:18
DX: R09.02 Hypoxemia (principal); R53.1 Weakness; I50.9 Heart failure, unspecified; E11.9 Type 2 diabetes mellitus without complications; Z87.891 Personal history of nicotine dependence; Z88.0 Allergy status to penicillin; Z88.8 Allergy status to other drugs, medicaments and biological substances; Z79.82 Long term (current) use of aspirin; Z79.899 Other long term (current) drug therapy; Z79.4 Long term (current) use of insulin
CPT/HCPCS: 36600; 71045; 80053; 81001; 82803; 83880; 84484; 85025; 99285-25

== ENCOUNTER 2022-04-04 08:59 | Inpatient (IN) | payer MEDICARE, OTHER ==
[~2022-04-04] VITALS: Ht 160 cm; Wt 60.3 kg
[2022-04-05] MEDS ORDERED: METFORMIN HCL500 MG PO (13:16)
[2022-04-05] MEDS ORDERED: CITALOPRAM HBR20 MG PO (13:18)
[2022-04-05] MEDS ORDERED: ATORVASTATIN CA40 MG PO (13:19)
--- NOTE | 2022-04-10 13:08 | EKG ---
[facility] [address] [facility] [place] [address] Signed Sinus rhythm with 1st degree AV block Right axis deviation Incomplete right bundle branch block Right ventricular hypertrophy Septal infarct , age undetermined Abnormal ECG When compared with ECG of 13-OCT-2019 14:32, Incomplete right bundle branch block is now present Septal infarct is now present Confirmed by IVÁN BENJAMIN MD ([id number]) on 04/10/2022 1:07:55 PM Electronically Signed By: IVÁN BENJAMIN MD 04/10/22 1308 PATIENT NAME: WASHINGTON BAUGH Electrocardiogram DATE OF : 59 PHYSICIAN: IVÁN BENJAMIN MD REPORT #: [id number] REPORT IS CONFIDENTIAL AND NOT TO BE RELEASED WITHOUT AUTHORIZATION
--- NOTE | 2022-04-11 14:04 | CONS ---
[facility] [address] [place], [place] [address] Signed DATE OF CONSULTATION: 04/04/2022 REQUESTING PHYSICIAN: Dr. Grant. PROBLEM: Sepsis, pulmonary embolism, dysarthria, thrombocytopenia, and anticoagulated with Eliquis. HISTORY OF PRESENT ILLNESS: This 66-year-old white woman has numerous comorbidities. She was admitted by Dr. Grant with presumed urosepsis. She was initially admitted on April 04 (today is April 06) with complaints of generalized weakness. She had similar symptoms going on for the preceding 10 days. The patient has an expressive dysphagia related to a severe stroke in 2014. She has psychomotor impairment and expressive an aphasia. The patient seven days to current admission, had shortness of breath with activity. The patient was brought to the emergency room, was found to be hypoxic and a CT scan showed pulmonary embolism of the main pulmonary artery as well as elevated creatinine and elevated liver enzymes. The patient is admitted for further evaluation and care. For underlying issues include not only the thalamic stroke with dysarthria and expressive aphasia, but also dysconjugate gaze (each eye rotated laterally) as well as chronic diastolic heart failure with a left ventricular ejection fraction of 55% gastroesophageal reflux, type 2 diabetes, hyperlipidemia, and depression. Her medicines have recently included meclizine, losartan, famotidine, insulin carvedilol, torsemide, and atorvastatin. She was recently begun on Eliquis on the basis of her pulmonary embolism. Her white count elevated today to 12.5, and she has become somewhat hypotensive. She is noted to have an initial platelet count of 100,000, yesterday 84,000, and today 38,000. She was begun on a norepinephrine drip today and apixaban two days ago. Review of her medications show she is not on heparin nor I am not sure if she has been previously. I do not believe so, however. Less heparin-induced thrombocytopenia is less likely. Request has been made for urgent placement of a central venous catheter for ongoing pressor support as well as monitoring and so on. Her sister is present and provides some of her history. The patient herself does appear to respond appropriately to questions, though she is unable to verbalize proper. REVIEW OF SYSTEMS: She has been hypotensive and relatively hypoxemic. She denies pain so far as could be told. Electronically Signed By: ALEM BOUCHER MD 04/11/22 1404 PATIENT NAME: WASHINGTON BAUGH CONSULTATION DATE OF : 59 REPORT #: [id number] PHYSICIAN: ALEM BOUCHER MD PCP: ANJALI CISSE MD REPORT IS CONFIDENTIAL AND NOT TO BE RELEASED WITHOUT AUTHORIZATION [facility] [address] [place], [place] [address] Signed PHYSICAL EXAMINATION: GENERAL: A woman with eyes closed. Upon elevating the eyelids, she has a dysconjugate gaze, both eyes rotated laterally. NECK: Trachea is midline. She has mild jugular venous distention. CHEST: Shows no evidence of tachypnea. O2 saturations are in the 86% to 88% range. CARDIOVASCULAR: Heart rate is approximately 120. Blood pressure systolic was 88. Abdomen is nondistended, but mildly tender in the right upper quadrant for reasons that are uncertain. LABORATORY STUDIES: Abdomen and pelvis CT scan had been performed on April 04 showed atherosclerotic disease normal-appearing liver, probable fluid-filled cervix and ascites. The gallbladder is absent from cholecystectomy. There is no fluid collection despite findings of ascites. ASSESSMENT: The patient has had decompensation while under observation and despite IV antibiotic administration. She was considered to have urosepsis based on her recent findings. The urinalysis at admission showed white cells 7-11, currently 4-6 per high-power field, 3+ bacteria is maintained. She has a Roldan catheter in place; I am uncertain if that was present previously. Clearly, the need for central venous catheterization is present. I discussed this with the patient to the extent she could relate and thoroughly to her sister who attends to her. In her case, significant hazard is noted and she is fully anticoagulated with Eliquis in the base of her pulmonary embolism and additionally newly thrombocytopenic. This does pose increased risk for bleeding of course. Nevertheless, central venous catheterization is deemed essential by Dr. Grant and an internal jugular approach would likely be safest for her. The risks of bleeding, infection, hematoma formation, arterial injury, and other unforeseen complications was reviewed with the patient and her sister and they wish to proceed. Alem Boucher MD /MODL /[id number] Electronically Signed By: ALEM BOUCHER MD 04/11/22 1404 PATIENT NAME: WASHINGTON BAUGH CONSULTATION DATE OF : 59 REPORT #: [id number] PHYSICIAN: ALEM BOUCHER MD PCP: ANJALI CISSE MD REPORT IS CONFIDENTIAL AND NOT TO BE RELEASED WITHOUT AUTHORIZATION [address] [place], [place] [address] Signed Copies: ~ Electronically Signed By: ALEM BOUCHER MD 04/11/22 1404 PATIENT NAME: WASHINGTON BAUGH [place] CONSULTATION DATE OF : 59 REPORT #: [id number] PHYSICIAN: ALEM BOUCHER MD PCP: ANJALI CISSE MD REPORT IS CONFIDENTIAL AND NOT TO BE RELEASED WITHOUT AUTHORIZATION
--- NOTE | 2022-04-11 14:04 | OR ---
[facility] [address], [place] [address] Signed DATE OF OPERATION: 04/06/2022 SURGEON: Alem Boucher MD PREOPERATIVE DIAGNOSES: Hypotension, hypoxemia, pulmonary embolism, urosepsis, need for central venous catheterization (emergency). POSTOPERATIVE DIAGNOSES: Hypotension, hypoxemia, pulmonary embolism, urosepsis, need for central venous catheterization (emergency). PROCEDURE: Right internal jugular central venous catheterization (arrow PowerPort triple-lumen catheter). ANESTHESIA: 1% lidocaine. INDICATIONS: A 66-year-old white woman with urosepsis, thrombocytopenia (36,000, platelet count), and recent initiation of Eliquis for pulmonary embolism. She has developed what appears to be urosepsis and needs central venous catheterization for pressure monitoring, intravenous fluids and so on. The risks of bleeding, infection, hematoma formation, failure to gain access, and so forth were all reviewed with the patient to the extent, she could understand and fully to her sister as well. They understand and wished to proceed. FINDINGS: Dark, thin nonpulsatile blood was noted on first pass into the right internal jugular vein. The catheter was passed without impediment and appears to be functional at conclusion of procedure and postprocedure chest x-ray is pending. DESCRIPTION OF PROCEDURE: The patient was placed in mild Trendelenburg position and the head turned towards the left. The entire neck area and subclavian area were prepared with a chlorhexidine solution and draped sterilely. An Arrow blue tip PowerPort triple lumen catheter kit was obtained. Using a sterile technique per hospital protocol, 1% lidocaine was injected just below the level of the external jugular vein, which was somewhat distended into the sternocleidomastoid muscle. Using the Seldinger technique with first pass Electronically Signed By: ALEM BOUCHER MD 04/11/22 1404 PATIENT NAME: WASHINGTON BAUGH OPERATIVE REPORT DATE OF : 59 REPORT #: [id number] PHYSICIAN: ALEM BOUCHER MD PCP: ANJALI CISSE MD REPORT IS CONFIDENTIAL AND NOT TO BE RELEASED WITHOUT AUTHORIZATION [facility] [address], [place] [address] Signed access to the right internal jugular vein, dark nonpulsatile blood was noted. It appeared rather thin. A flexible J-wire was passed down the needle and the needle was removed. The site was incised with an 11 blade and dilated gently with a blue dilator enclosed in a kit. An Arrow PowerPort triple-lumen catheter was passed over the wire without problem. Wire was removed. Aspiration on the distal port showed dark nonpulsatile blood. The catheter had been previously flushed with saline solution and cleave attachments applied. The catheter was withdrawn a few centimeters and secured with a white enclosed collar to the skin with an enclosed silk suture and two points of fixation. The anti-infective disk was applied as was an OpSite dressing. A postprocedure chest x-ray is planned. The procedure went without any complication and appears to be safely placed. Pressure will be applied to the operative site given her proclivity for bleeding based on her impaired platelet number and her anticoagulation. MD KAMILA Javier/TORRIL /[id number] cc: Dr. Grant Copies: ~ Electronically Signed By: ALEM BOUCHER MD 04/11/22 1404 PATIENT NAME: WASHINGTON BAUGH OPERATIVE REPORT DATE OF : 59 REPORT #: [id number] PHYSICIAN: ALEM BOUCHER MD PCP: ANJALI CISSE MD REPORT IS CONFIDENTIAL AND NOT TO BE RELEASED WITHOUT AUTHORIZATION
== END 2022-04-08 00:15 | DRG 175 ==
LOC: ED 08:59 → MS 16:07 → CCU 04-06 16:19 → MS 04-07 13:35
PROVIDERS: ADMIT Internal Medicine; ATTEND Internal Medicine
PROC: 3E03329 Introduction of Other Anti-infective into Peripheral Vein, Percutaneous Approach (ICD-10-PCS; 2022-04-04)
PROC: 3E033XZ Introduction of Vasopressor into Peripheral Vein, Percutaneous Approach (ICD-10-PCS; principal; 2022-04-06)
PROC: 02HV33Z Insertion of Infusion Device into Superior Vena Cava, Percutaneous Approach (ICD-10-PCS; 2022-04-06)
DX: I26.09 Other pulmonary embolism with acute cor pulmonale (principal); J96.01 Acute respiratory failure with hypoxia; I50.33 Acute on chronic diastolic (congestive) heart failure; N17.9 Acute kidney failure, unspecified; D68.9 Coagulation defect, unspecified; B17.9 Acute viral hepatitis, unspecified; N30.00 Acute cystitis without hematuria; Z20.822 Contact with and (suspected) exposure to COVID-19; Z51.5 Encounter for palliative care; E87.5 Hyperkalemia; I95.9 Hypotension, unspecified; I50.810 Right heart failure, unspecified; I69.398 Other sequelae of cerebral infarction; E11.9 Type 2 diabetes mellitus without complications; Z88.0 Allergy status to penicillin; Z90.49 Acquired absence of other specified parts of digestive tract; Z98.890 Other specified postprocedural states; Z88.8 Allergy status to other drugs, medicaments and biological substances; Z79.899 Other long term (current) drug therapy; Z79.82 Long term (current) use of aspirin; I69.322 Dysarthria following cerebral infarction; I69.391 Dysphagia following cerebral infarction; R13.10 Dysphagia, unspecified; E78.5 Hyperlipidemia, unspecified
CPT/HCPCS: 36415; 36600; 71045; 71260; 74177; 76705; 76856; 80048; 80053; 80076; 81001; 82140; 82553; 82570; 82803; 83036; 83540; 83550; 83605; 83690; 83735; 83880; 84132; 84300; 84550; 85025; 85060; 85610; 86038; 86140; 86255; 86704; 86706; 86709; 86803; 86850; 86900; 86901; 87088; 87340; 87502; 93005; 93010; 93306; 94760; 97162; 99285-25; A9270; C9803; G0480; J0744; J1650; J1815; J1940; J1956; J2405; J3010; J3490; J7030; J7121; Q9967; U0003